=== PATIENT | male | born 1965 | race Caucasian/White ===

== ENCOUNTER → 2016-11-13 | Outpatient (CLI) | payer BC ==
[~2016-11-13] MED LIST: ALBUTEROL17 GM INH; ASPIRIN81 MG PO; ATORVASTATIN CA10 MG PO; BACTRIM DS TABL1 TA1 PO; BAYER CHEWABLE81 MG PO; BENZONATATE PO; CHOLESTEROL MED; DELTASONE20 MG PO; HYDROMET SYRUP480 ML PO; MEDROL4 MG/DOSE- PO; MOTRIN600 M2 DOB; MOTRIN600 M2 PO; MULTI VITAMIN1 EACH PO; NAPROSYN375 MG PO; NORCO 10/3251 TAB; NORCO1 TAB 10/3 PO; ZITHROMAX PO
--- NOTE | ~2016-11-13 | US5 ---
[facility] A Service of [facility] RADIOLOGY TEXT RESULTS PATIENT: LAMIN MONET SR LOCATION: [facility] : 61 UNIT #: [id number] AGE: [address]: CELSO RAMIREZ SEX: M ORDER DR: [id number] [facility]. [place], [place] [address] [id number] O MR#: [id number] Acc #: [id number] NAME: LAMIN MONET SR : 1965 SEX: M STUDY DATE/TIME: 11/13/2016 10:05 UNIT: [facility] ROOM: STUDY DESCRIPTION: US Abdominal Complete Attending Physician: Celso Ramirez Aprn Referring Physician: Celso Ramirez Aprn Ordering Physician: Lizeth Not Listed Primary Care Physician: Amandeep Oleary M.D. MEDICAL IMAGING REPORT This report is preliminary unless electronic signature is present EXAM Abdominal ultrasound complete 11/13/2016 INDICATIONS 51-year-old male with history of hepatitis C virus. Beginning treatment next week for hepatitis C. Hypertension. TECHNIQUE Sonographic imaging of the abdomen was performed. COMPARISON STUDIES 07/16/2015 FINDINGS The pancreas was obscured by bowel gas and not seen or evaluated. Portions of the liver were obscured by bowel gas. Visualized aspects of the liver demonstrate a long axis length of 16.6 cm without evidence of focal mass, intrahepatic ductal dilatation, or ascites. The right kidney is nonobstructed, measuring 12.1 cm long axis. The gallbladder is sonographically unremarkable. Extrahepatic common bile duct measures 5 mm. Left kidney nonobstructed, measuring 11.9 cm long axis. No shadowing stone associated with either kidney. Spleen measures 11.6 cm long axis. IMPRESSION The pancreas was obscured by bowel gas and not seen or evaluated; otherwise, the abdominal ultrasound is negative. Portions of the liver were also obscured from view by bowel gas. Dictated by... John Núñez M.D. [facility] A Service of [facility] RADIOLOGY TEXT RESULTS PATIENT: LAMIN MONET LOCATION: [facility] : 61 UNIT #: [id number] AGE: [address]: CELSO RAMIREZ SEX: M ORDER DR: THIS IS AN ELECTRONICALLY VERIFIED REPORT John Núñez M.D. at 11/13/2016 4:56 PM Mireya TD: 11/13/2016 12:20 JOB #: [id number] MEDICAL IMAGING REPORT Page 1 of 1 COPY
== END | disposition home or self-care (01) ==
LOC: CGUS 09:41
DX: B18.2 Chronic viral hepatitis C (principal)
CPT/HCPCS: 76700